=== PATIENT | female | born 1970 | race Caucasian/White ===

== ENCOUNTER 2022-01-15 07:31 | Inpatient (IN) | payer MEDICAID ==
[2022-01-09 10:52] LABS: ALBUMIN 3.6 G/DL (3.4-5.0); ALBUMIN/GLOBULIN RATIO 0.8 (1.1-1.5); ALKALINE PHOSPHATASE 107 IU/L (46-116); BLOOD UREA NITROGEN 18 MG/DL (7-18); BUN/CREATININE RATIO 17.1 (6.6-38.0); CALCIUM 8.7 MG/DL (8.5-10.1); CHLORIDE 103 MMOL/L (99-107); CREATININE 1.05 MG/DL (0.40-0.90); PRE OP ALT 20 U/L (30-65); PRE OP ANION GAP 7 (8-16); PRE OP AST 14 U/L (10-37); PRE OP BILIRUB, TOTAL 0.2 MG/DL (0.0-1.0); PRE OP GLUCOSE 89 MG/DL (70-104); PRE OP POTASSIUM 4.3 MMOL/L (3.4-5.1); PRE OP SODIUM 138 MMOL/L (135-145); TOTAL CARBON DIOXIDE 27.8 MMOL/L (24-32); eGFR 55 ML/MIN
[2022-01-09 11:02] LABS: CLARITY,URINE CLEAR (Clear); COLOR,URINE YELLOW (Yellow); GLUCOSE, URINE NEGATIVE (Neg); KETONES,URINE NEGATIVE (Neg); LEUKOCYTE ESTERASE ,URINE NEGATIVE (Neg); NITRITES, URINE NEGATIVE (Neg); OCCULT BLOOD,URINE NEGATIVE (Neg); PROTEIN,URINE NEGATIVE (Neg); UROBILINOGEN,URINE 0.2 E.U/dL (0.2-1.0)
[2022-01-09 11:11] LABS: BASOPHILS # (AUTO) 0.1 X10'3 (0-0.2); BASOPHILS % (AUTO) 0.8 % (0-1); EOSINOPHILS # (AUTO) 0.2 X10'3 (0-0.9); EOSINOPHILS % (AUTO) 3.2 % (0-6); LYMPHOCYTES # (AUTO) 2.3 X10'3 (1.1-4.8); LYMPHOCYTES % (AUTO) 30.1 % (21-51); MEAN CORPUSCULAR HEMOGLOBIN 29.5 PG (27.0-31.0); MEAN CORPUSCULAR HGB CONC 33.3 g/dL (33.0-36.5); MEAN CORPUSCULAR VOLUME 88.6 FL (78-98); MEAN PLATELET VOLUME 7.8 FL (7.4-10.4); MONOCYTES # (AUTO) 0.6 X10'3 (0-0.9); MONOCYTES % (AUTO) 7.3 % (2-12); NEUTROPHILS # (AUTO) 4.5 X10'3 (1.8-7.7); NEUTROPHILS % (AUTO) 58.6 % (42-75); PRE OP HEMATOCRIT 33.7 % (35.0-45.0); PRE OP HEMOGLOBIN 11.2 g/dL (12.0-16.0); PRE OP PLATELET COUNT 292 X10'3 (140-440); RED BLOOD COUNT 3.81 X10'6 (4.20-5.60)
[2022-01-09 11:17] LABS: UA COLLECTION TYPE CLN CATCH MIDSTREAM
[~2022-01-15] VITALS: Ht 157.5 cm; Wt 51.7 kg
[2022-01-15] VITALS (29 sets, daily range): BP systolic 96–178; BP diastolic 52–112
[~2022-01-15 07:31] MED LIST: ALBU18HF2 IH; BUPIVAcaine/PF 2.5mg/ml (0.25%) 10ml vial ONE; CLIN150C8 PO; GABA300C PO; HYDR-3965 PO; LEVO25TA7 PO; METH-798 PO; MONT-40 PO; NAPR-996 PO; TRAZ-251 PO; albuterol 2.5 MG/3 ML nebule NEB ONE; ceFAZolin inj. 2,000 MG in dextrose 5%-water 100 ML IV ONE; famotidine 20mg tablet PO ONE; fentaNYL/PF 50MCG/1 ML 2ML syringe ONE; midazolam 1 mg/ML 2ml injection ONE; ringers solution, lacted 1,000 ML IV SCH; scopolamine 1mg/72 hr patch TD ONE; vancomycin/NS 1 GM in NS 250 ML IV ONE
[2022-01-15] MEDS ORDERED: midazolam 1 mg/ML 2ml injection ONE (07:32)
[2022-01-15] MEDS ORDERED: glycopyrrolate 0.2mg/ml inj ONE (07:35)
[2022-01-15] MEDS ORDERED: cloNIDine hcl/PF 100mcg/ml inj ONE (07:35)
[2022-01-15] MEDS ORDERED: sevoflurane 250ml liquid IH ONE (07:35)
[2022-01-15] MEDS ORDERED: neostigmine methylsulfate 1 MG/ML 10ml vial ONE (07:35)
[2022-01-15] MEDS ORDERED: ringers solution, lacted 1,000 ML IV SCH (08:15)
[2022-01-15] MEDS ORDERED: meperidine/PF 25mg/ml syringe IV PRN ×2 (08:15)
[2022-01-15] MEDS ORDERED: morphine 4 MG/ML inj SYRINge IV PRN (08:15)
[2022-01-15] MEDS ORDERED: morphine 2 MG/ML inj. syringe IV PRN (08:15)
[2022-01-15] MEDS ORDERED: proCHLORperazine 10 MG/2 ml inj IV PRN (08:15)
[2022-01-15] MEDS ORDERED: ondansetron/PF 4mg/2ml inj IV PRN ×2 (08:15→10:20)
[2022-01-15] MEDS ORDERED: LIDOcaine 1%/PF 5ML 10 MG/ML VIAL ONE (08:40)
[2022-01-15] MEDS ORDERED: ondansetron/PF 4mg/2ml inj ONE (08:40)
[2022-01-15] MEDS ORDERED: rocuronium 10mg/ml inj IV ONE (08:40)
[2022-01-15] MEDS ORDERED: propofol inj 20 ML IV ONE (08:40)
[2022-01-15] MEDS ORDERED: dexamethasone sod phosphate 4mg/ml inj. ONE (08:40)
[2022-01-15] MEDS ORDERED: ROPIVAcaine 0.5% (5mg/ml) 30ml vial ONE (08:40)
[2022-01-15] MEDS ORDERED: vancomycin 1,000mg inj IVT ONE (09:00)
[2022-01-15] MEDS ORDERED: fentaNYL/PF 50MCG/1 ML 2ML syringe ONE (09:01)
[2022-01-15] MEDS ORDERED: vancomycin 1,000mg inj ONE (09:15)
--- NOTE | 2022-01-15 09:47 | NUR ---
Received from OR via HOSPITAL BED , accompanied by Anesthesiologist CARLOS EDUARDO and EMBEDDED SOFTWARE MANAGER report given by Anesthesiolgist. PT ARRIVES DROWSY, ON SIMPLE MASK O2, RESPONSIVE TO TOUCH AND STIMULI. LEFT SHOULD DRESSING DRY AND INTACT, PT PAIN CONTROLLED. GEOVANNA SCOTT. Addendum: 01/15/22 at 1001 by Jim Zazueta RN Amended: Links added.
[2022-01-15] MEDS ORDERED: HYDROmorphone inj. 0.5 MG/0.5 ML DISP.SYRIN IV PRN (10:20)
[2022-01-15] MEDS ORDERED: acetaminophen 325mg tablet PO PRN (10:20)
[2022-01-15] MEDS ORDERED: HYDROmorphone 1 mg/ml syringe IV PRN (10:20)
[2022-01-15] MEDS ORDERED: diphenhydrAMINE 25mg capsule PO PRN ×2 (10:20)
[2022-01-15] MEDS ORDERED: bisacodyl 10mg suppository rectal RC PRN (10:20)
[2022-01-15] MEDS ORDERED: naloxone 0.4 mg/ml inj IV PRN (10:20)
[2022-01-15] MEDS ORDERED: magnesium hydroxide 30ml (MOM) UD suspension PO PRN (10:20)
[2022-01-15] MEDS ORDERED: TYPE IN GENERIC & BRAND NAME OF PATIENT MED STRENGTH & FORM PO PRN (10:20)
[2022-01-15] MEDS ORDERED: hydrALAZINE 20mg/ml inj. IV ONE (10:50)
--- NOTE | 2022-01-15 10:57 | NUR ---
[employer] WAS DOWN THIS AM WHEN PT RECIEVED THEIR PO PEPCID THEREFORE MEDICATIONS WERE UNABLE TO BE SCANNED. PEPCID ADMINISTERED PER PROTOCOL. LR ALSO STARTED PER PROTOCOL. VANCOMYCIN PIGGYBACK STARTED PER PROTOCOL.
[2022-01-15] MEDS ORDERED: cyclobenzaprine 10mg tablet PO PRN (11:31)
[2022-01-15] MEDS ORDERED: meperidine/PF 25mg/ml syringe ONE (12:09)
[2022-01-15] MEDS: meperidine/PF 25mg/ml syringe IV PRN ×2 (12:12→13:48)
[2022-01-15] MEDS ORDERED: LORazepam 2 mg/ml vial IV ONE (13:55)
--- NOTE | 2022-01-15 16:15 | NUR ---
Patient in room ORTHO 4012. I have received report from Jim and had the opportunity to ask questions and assume patient care. Addendum: 01/15/22 at 1707 by Shelby Garzon RN Patient arrived to the floor at 1700, tucked in, vitals taken, toileting
--- NOTE | 2022-01-15 16:47 | NUR ---
Report called to receiving nurse HECTOR BUSTILLOS. Transferred via HOSPITAL BED. ALL PT'S Belongings WITH PT UPON DELIVERY TO ROOM 4012B, PT WEARING DENTURES, HAS SMART PHONE IN HAND, CLOTHING IN HOSPITAL BAG IN PT POSSESSION. PT DELIVERED TO ROOM WITHOUT INCIDENT, RN AT BEDSIDE. ASSISTED TO BATHROOM AND BACK TO BED, BED ALARM ACTIVE, NO COMPLAINTS OF PAIN. CALL LIGHT WITHIN REACH OF PT. Special Issues communicated to receiving nurse. Addendum: 01/15/22 at 1727 by Jim Zazueta RN Amended: Links added.
[2022-01-15] MEDS: potassium cl 20mEq in 1/2 NS 1,000 ML IV SCH (17:34)
--- NOTE | 2022-01-15 18:13 | NUR ---
Problems reprioritized. Patient report given, questions answered & plan of care reviewed with Mariel Banguar
--- NOTE | 2022-01-15 19:34 | NUR ---
Responded to call light for patient's room, observed her to be sitting up in bed swinging her arms stating that she had to pee. Patient was instructed to hold on for a second as she would need assistance to get out of bed r/t having SCD's and IV in place. Patient became very impulsive saying that she could not wait as she was going to pee the bed. This nurse again instructed her to hang on while we make it safe for her to get out of bed. Patient was not happy with staff asking her to wait. While this nurse was getting everything unhooked for her to get up the patient got out of bed almost pulling out her IV. Several other staff members were present at this time trying to help assist patient to the bathroom safely. Patient was verbalizing that she was not happy about having to wait. Patient was then assisted to the bathroom. Once patient was done in the bathroom this nurse entered to assist patient back to bed. Patient was again verbalizing that she was not happy about being instructed to wait. Patient was assisted with putting her gown on and back to bed without major incident. Patient had questions about dinner, for which I informed her I would try to order a tray from the kitchen. Patient also voiced concerns about no one having checked on her. I informed patient that I had been in but the patient was sleeping. Patient then expressed that she was talking about her daughter for which I informed her that it was passed visiting hours. Patient was not happy. Informed patient that part maker would be in to speak with patient about any further concerns or questions regarding hospital policies. office aide provided patient with water and snacks while waiting for dinner tray.
[2022-01-15] MEDS: albuterol 2.5 MG/3 ML nebule NEB SCH (20:00)
[2022-01-15] MEDS: oxyCODONE IR 5mg (immed. release) tablet PO PRN (20:20)
[2022-01-15] MEDS: gabapentin 300mg capsule PO SCH (20:20)
[2022-01-15] MEDS: naproxen 500mg tablet PO SCH (20:20)
[2022-01-15] MEDS: acetaminophen 325mg tablet PO SCH (20:20)
[2022-01-15] MEDS: sennosides 8.6mg tablet PO SCH (20:58)
[2022-01-15] MEDS: vancomycin/NS 1 GM ADD-VANTAGE 250 ML IV SCH (21:03)
[2022-01-15] MEDS: traZODone 50mg tablet PO SCH (21:05)
[2022-01-15] MEDS: ceFAZolin/D5W- 1GM premix 50 ML IV SCH (23:41)
[2022-01-16 02:00] VITALS: BP 89/49
[2022-01-16] MEDS: acetaminophen 325mg tablet PO SCH ×4 (02:00→19:58)
[2022-01-16] MEDS: potassium cl 20mEq in 1/2 NS 1,000 ML IV SCH ×2 (03:48→10:20)
[2022-01-16] MEDS: oxyCODONE IR 5mg (immed. release) tablet PO PRN ×4 (04:40→19:53)
[2022-01-16 06:00] VITALS: BP 84/56
[2022-01-16] MEDS: gabapentin 300mg capsule PO SCH ×2 (06:54→19:54)
[2022-01-16] MEDS: cyclobenzaprine 10mg tablet PO PRN (06:54)
[2022-01-16] MEDS: montelukast 10mg tablet PO SCH (06:55)
[2022-01-16] MEDS: naproxen 500mg tablet PO SCH ×3 (06:55→19:54)
[2022-01-16 06:57] LABS: BASOPHILS # (AUTO) 0.1 X10'3 (0-0.2); BASOPHILS % (AUTO) 0.5 % (0-1); EOSINOPHILS % (AUTO) 0.5 % (0-6); HEMATOCRIT 27.7 % (35.0-45.0); HEMOGLOBIN 9.4 g/dl (12.0-16.0); LYMPHOCYTES # (AUTO) 2.5 X10'3 (1.1-4.8); LYMPHOCYTES % (AUTO) 23.7 % (21-51); MEAN CORPUSCULAR HEMOGLOBIN 30.5 PG (27.0-31.0); MEAN CORPUSCULAR VOLUME 89.7 FL (78-98); MEAN PLATELET VOLUME 7.7 FL (7.4-10.4); MONOCYTES % (AUTO) 9.3 % (2-12); NEUTROPHILS # (AUTO) 7.1 X10'3 (1.8-7.7); PLATELET COUNT 259 X10'3 (140-440); RED BLOOD COUNT 3.09 X10'6 (4.20-5.60); RED CELL DISTRIBUTION WIDTH 17.8 % (11.5-14.5); WHITE BLOOD COUNT 10.8 X10'3 (4.5-11.0)
[2022-01-16] MEDS: ceFAZolin/D5W- 1GM premix 50 ML IV SCH ×2 (06:58→15:01)
[2022-01-16 07:25] LABS: ANION GAP 8 (8-16); CHLORIDE 106 MMOL/L (99-107); POTASSIUM 4.8 MMOL/L (3.5-5.1); SODIUM 138 MMOL/L (135-145); TOTAL CARBON DIOXIDE 24.1 MMOL/L (24-32)
[2022-01-16] MEDS: albuterol 2.5 MG/3 ML nebule NEB SCH ×2 (07:32→20:00)
[2022-01-16] MEDS: levoTHYROXINE 25mcg tablet PO SCH (08:22)
[2022-01-16] MEDS: vancomycin/NS 1 GM ADD-VANTAGE 250 ML IV SCH (08:51)
--- NOTE | 2022-01-16 09:33 | NUR ---
Malnutrition consult: Pt reports 2-13 lb wt loss with decreased appetite per malnutrition risk screen with RN. Current scaled wt of 51.71 kg appears stable with UBW as pt with documented scaled weights of 52-52.2 kg from March 2015 to August 2015 (most recent scaled wt hx in EMR). Pending documentation of PO intake on regular diet. Per EMR pt with mild muscle weakness though localized to left arm of which pt has a surgical wound. No edema per EMR. Pt currently lacks a minimum of two criteria for malnutrition. Will continue to follow. Addendum: 01/16/22 at [address] Amended: Links added.
[2022-01-16 10:00] VITALS: BP 100/66
[2022-01-16] MEDS ORDERED: normal saline 1000ml 1,000 ML IV ONE (11:30)
[2022-01-16] MEDS: normal saline 1000ml 1,000 ML IV SCH (12:05)
[2022-01-16] MEDS: aspirin 325mg tablet PO SCH (12:05)
--- NOTE | 2022-01-16 15:00 | NUR ---
found naproxen dose on floor. pt put pills in hand to take and spilled. placed medication in sharps. will wait for noc dose.
--- NOTE | 2022-01-16 15:19 | NUR ---
pt c/o pain with movement but is sleeping calmly even before staff finishes workign with the IV. noted pt low BP improved a fluid bolus and correct BP cuff.
[2022-01-16 15:20] VITALS: BP 107/68
[2022-01-16 18:00] VITALS: BP 117/65
[2022-01-16] MEDS: sennosides 8.6mg tablet PO SCH (19:55)
[2022-01-16] MEDS: traZODone 50mg tablet PO SCH (21:00)
[2022-01-16 22:00] VITALS: BP 122/74
[2022-01-17] MEDS: ceFAZolin/D5W- 1GM premix 50 ML IV SCH ×3 (00:17→16:00)
[2022-01-17] MEDS: oxyCODONE IR 5mg (immed. release) tablet PO PRN ×4 (00:22→13:43)
[2022-01-17] MEDS: traZODone 50mg tablet PO SCH (00:23)
[2022-01-17] MEDS: acetaminophen 325mg tablet PO SCH ×2 (02:00→07:40)
[2022-01-17 06:00] VITALS: BP 109/66
--- NOTE | 2022-01-17 06:18 | NUR ---
Problems reprioritized. Patient report given, questions answered & plan of care reviewed with TRESSA Valdivia.
[2022-01-17] MEDS: gabapentin 300mg capsule PO SCH (07:40)
[2022-01-17] MEDS: levoTHYROXINE 25mcg tablet PO SCH (07:40)
[2022-01-17] MEDS: naproxen 500mg tablet PO SCH (07:40)
[2022-01-17] MEDS: aspirin 325mg tablet PO SCH (07:40)
[2022-01-17] MEDS: montelukast 10mg tablet PO SCH (07:42)
[2022-01-17] MEDS: albuterol 2.5 MG/3 ML nebule NEB SCH (07:46)
[2022-01-17 07:47] LABS: BASOPHILS % (AUTO) 0.5 % (0-1); EOSINOPHILS # (AUTO) 0.2 X10'3 (0-0.9); EOSINOPHILS % (AUTO) 2.6 % (0-6); HEMATOCRIT 25.6 % (35.0-45.0); HEMOGLOBIN 8.5 g/dl (12.0-16.0); LYMPHOCYTES # (AUTO) 2.7 X10'3 (1.1-4.8); LYMPHOCYTES % (AUTO) 38.1 % (21-51); MEAN CORPUSCULAR HEMOGLOBIN 29.4 PG (27.0-31.0); MEAN CORPUSCULAR HGB CONC 33.1 g/dL (33.0-36.5); MEAN CORPUSCULAR VOLUME 88.9 FL (78-98); MEAN PLATELET VOLUME 7.6 FL (7.4-10.4); MONOCYTES # (AUTO) 0.6 X10'3 (0-0.9); MONOCYTES % (AUTO) 8.1 % (2-12); NEUTROPHILS # (AUTO) 3.6 X10'3 (1.8-7.7); NEUTROPHILS % (AUTO) 50.7 % (42-75); PLATELET COUNT 195 X10'3 (140-440); RED BLOOD COUNT 2.89 X10'6 (4.20-5.60); RED CELL DISTRIBUTION WIDTH 17.6 % (11.5-14.5)
[2022-01-17 08:53] LABS: ALANINE AMINOTRANSFERASE 11 U/L (12-78); ALBUMIN 2.8 G/DL (3.4-5.0); ALBUMIN/GLOBULIN RATIO 0.8 (1.1-1.5); ALKALINE PHOSPHATASE 85 IU/L (46-116); ANION GAP 7 (8-16); ASPARTATE AMINO TRANSFERASE 15 U/L (10-37); BILIRUBIN,TOTAL 0.2 MG/DL (0.1-1.0); BLOOD UREA NITROGEN 19 MG/DL (7-18); BUN/CREATININE RATIO 24.1 (6.6-38.0); CALCIUM 8.2 MG/DL (8.5-10.1); CHLORIDE 112 MMOL/L (99-107); CREATININE 0.79 MG/DL (0.40-0.90); GLUCOSE 104 MG/DL (70-104); POTASSIUM 4.1 MMOL/L (3.5-5.1); SODIUM 142 MMOL/L (135-145); TOTAL CARBON DIOXIDE 23.4 MMOL/L (24-32); TOTAL PROTEIN 6.4 G/DL (6.4-8.2); eGFR 76 ML/MIN
[2022-01-17] MEDS ORDERED: vancomycin/NS 1 GM ADD-VANTAGE 250 ML IV SCH ×2 (09:00→21:00)
[2022-01-17] MEDS: cyclobenzaprine 10mg tablet PO PRN (09:16)
[2022-01-17] MEDS: normal saline 1000ml 1,000 ML IV SCH (09:20)
[2022-01-17 09:22] VITALS: BP 131/82
--- NOTE | 2022-01-17 09:48 | NUR ---
pt upset about having to work with PT. complained about sling being too big, but pt not using sling or ice. poor body mechanics, impulsive
[2022-01-17 10:00] VITALS: BP 120/71
[2022-01-17] MEDS ORDERED: acetaminophen 325mg tablet PO PRN (10:20)
[2022-01-17] MEDS ORDERED: OXYC-658 PO (15:02)
[2022-01-17] MEDS ORDERED: ASPI-1 PO (15:02)
[2022-01-17] MEDS ORDERED: CEPH-585 PO (15:39)
--- NOTE | 2022-01-17 16:04 | NUR ---
discharge orders received. medications called into [facility] [address]
--- NOTE | 2022-01-17 16:45 | NUR ---
patient transferred to her mom's car via w/c and aide accompanying. all belongings in bag
[2022-01-18] MEDS ORDERED: VANCOMYCIN LEVEL IV ONE (20:30)
== END 2022-01-17 16:50 | disposition home or self-care (01) | DRG 322 ==
LOC: PAS IN 07:31 → ORTHO 4S 16:50
PROVIDERS: ADMIT Orthopaedic Surgery; ATTEND Orthopaedic Surgery
PROC: 0RJK4ZZ Inspection of Left Shoulder Joint, Percutaneous Endoscopic Approach (ICD-10-PCS; 2022-01-15)
PROC: 0RHK08Z Insertion of Spacer into Left Shoulder Joint, Open Approach (ICD-10-PCS; 2022-01-15)
PROC: 3E0T3BZ Introduction of Anesthetic Agent into Peripheral Nerves and Plexi, Percutaneous Approach (ICD-10-PCS; 2022-01-15)
PROC: 3E0T33Z Introduction of Anti-inflammatory into Peripheral Nerves and Plexi, Percutaneous Approach (ICD-10-PCS; 2022-01-15)
PROC: 0RRK0J6 Replacement of Left Shoulder Joint with Synthetic Substitute, Humeral Surface, Open Approach (ICD-10-PCS; principal; 2022-01-15 07:30)
DX: M87.012 Idiopathic aseptic necrosis of left shoulder (principal); M86.21 Subacute osteomyelitis, shoulder; D62 Acute posthemorrhagic anemia; M86.622 Other chronic osteomyelitis, left humerus; J44.9 Chronic obstructive pulmonary disease, unspecified; E03.9 Hypothyroidism, unspecified; L03.114 Cellulitis of left upper limb; Z88.5 Allergy status to narcotic agent; Z88.8 Allergy status to other drugs, medicaments and biological substances; Z79.899 Other long term (current) drug therapy
CPT/HCPCS: 36415; 71046; 80051; 80053; 81003; 82948; 84443; 85025; 87070; 87075; 87081; 94640; 94760; 97116; 97161; 97530; A4615; A4618; A6449; A7000; C1713; C1776; G0378; J0360; J0690; J0735; J1100; J2060; J2175; J2250; J2270; J2405; J2704; J2710; J2795; J3010; J3370; J3480; J3490; J7030; J7060; J7120

== ENCOUNTER 2022-05-19 18:03 | Emergency (ER) | payer MEDICAID ==
[~2022-05-19] VITALS: Ht 157.5 cm; Wt 51.8 kg
[~2022-05-19 18:03] MED LIST changes: -BUPIVAcaine/PF 2.5mg/ml (0.25%) 10ml vial ONE; -CLIN150C8 PO; -GABA300C PO; -HYDR-3965 PO; -METH-798 PO; -MONT-40 PO; -NAPR-996 PO; -albuterol 2.5 MG/3 ML nebule NEB ONE; -ceFAZolin inj. 2,000 MG in dextrose 5%-water 100 ML IV ONE; -famotidine 20mg tablet PO ONE; -fentaNYL/PF 50MCG/1 ML 2ML syringe ONE; -midazolam 1 mg/ML 2ml injection ONE; -ringers solution, lacted 1,000 ML IV SCH; -scopolamine 1mg/72 hr patch TD ONE; -vancomycin/NS 1 GM in NS 250 ML IV ONE
[2022-05-19 18:08] VITALS: BP 123/87
[2022-05-19] MEDS ORDERED: LIDOcaine 1% 30ml preserv. free vial IJ ONE (19:02)
--- NOTE | 2022-05-19 21:41 | NUR ---
DRESSING APPLIED SPLINT APPLIED
== END 2022-05-19 19:43 | disposition home or self-care (01) ==
LOC: ER 18:03
DX: S61.211A Laceration without foreign body of left index finger without damage to nail, initial encounter (principal); J45.909 Unspecified asthma, uncomplicated; Z87.01 Personal history of pneumonia (recurrent); Z87.440 Personal history of urinary (tract) infections; Z86.14 Personal history of Methicillin resistant Staphylococcus aureus infection; Z90.710 Acquired absence of both cervix and uterus; Z88.0 Allergy status to penicillin; Z88.2 Allergy status to sulfonamides; Z88.5 Allergy status to narcotic agent; Z88.1 Allergy status to other antibiotic agents; Z79.899 Other long term (current) drug therapy; W26.0XXA Contact with knife, initial encounter; Y93.89 Activity, other specified; Y92.89 Other specified places as the place of occurrence of the external cause; Y99.8 Other external cause status
CPT/HCPCS: 12001; 99282; J3490; A6449